=== PATIENT | female | born 1965 | race Caucasian/White ===

== ENCOUNTER → 2020-02-10 15:18 | Outpatient (CLI) | payer BC, SELFPAY ==
--- NOTE | ~2020-02-10 | MM_ITS ---
EXAMINATION: MM scrn luca implant BI w willa HISTORY: Screening mammogram, interval breast augmentation. TECHNIQUE: Craniocaudal and mediolateral oblique 3-D tomosynthesis images with implant displacement a nd synthetic 2-D images were generated. Craniocaudal and mediolateral oblique views of the breasts wi thout implant displacement were obtained using full field digital mammography. CAD analysis was submi tted and interpreted. COMPARISON: 08/21/2009, 01/17/2007 BREAST PARENCHYMAL COMPOSITION: The breasts are heterogeneously dense, which may obscure small masses . FINDINGS: RIGHT BREAST: Asymmetries are present in the far upper outer quadrant of the right breast on the medi olateral oblique view without implant displacement. LEFT BREAST: A 9 mm mass is present in the middle third of the inner quadrant of the breast 7.5 cm fr om the nipple. IMPRESSION: 1. Bilateral breast findings as described above. 2. Additional mammographic views and possible breast ultrasound are recommended. BI-RADS Category 0: Incomplete: Needs additional imaging evaluation. Reviewed, dictated and finalized at location A. IMPRESSION: 1. Bilateral breast findings as described above. 2. Additional mammographic views and possible breast ultrasound are recommended . BI-RADS Category 0: Incomplete: Needs additional imaging evaluation.
== END ==
PROVIDERS: PCP Internal Medicine; Visit Provider Internal Medicine
DX: Z12.31 Encounter for screening mammogram for malignant neoplasm of breast (principal); R92.8 Other abnormal and inconclusive findings on diagnostic imaging of breast
CPT/HCPCS: 77063; 77067

== ENCOUNTER 2022-11-04 02:04 | Day surgery (SDC) | payer BC, SELFPAY ==
[2022-10-22 14:15] VITALS: BMI 19.8
--- NOTE | 2022-11-01 17:25 | P.PNAN_ITS ---
Anes - Eval Pre Procedure Procedure: Operation Date: 11/04/22 09:00 Proposed Procedures p Screening Colonoscopy - Hardeep Mulligan MD Date/Time: 11/01/22 17:25 Pre Op Diagnosis: neoplasm screening Patient Data Age: 57 Gender: F Height: 1.63 m Weight: 52.5 kg Allergies Allergy/AdvReac Type Severity Reaction Status Date / Time No Known Allergies Verified 03/28/19 17:16 Home Medications Medication Instructions Recorded Confirmed Type lisinopril 10 mg tablet 10 mg PO DAILY 03/28/19 10/22/22 History sulfamethoxazole 800 1 tablet PO Q12H 10 days #20 tabs 03/28/19 10/22/22 Rx mg-trimethoprim 160 mg tablet sodium,potassium,mag sulfates 17.5 See Rx Instructions PO .COMPLEX 09/13/22 10/22/22 Rx gram-3.13 gram-1.6 gram oral soln #354 mL (Suprep Bowel Prep Kit) Patient hx anesthesia problems: none Family hx anesthesia problems: none Results Review: All pre-operative results and documents have been reviewed as part of the pre- operative evaluation. [facility] Past Medical History Medical History (Updated 11/01/22 @ 17:25 by Jayashree Mora CRNA) HTN (hypertension) Social History Social History Smoking status: Never smoker Alcohol intake: current Drinks per week: 7 Substance use: never Substance use type: does not use and heroin Living arrangements: with family Spiritual care concerns: No Exam Day of Procedure 11/01/22 17:25
[2022-11-04 07:46] VITALS: BP 137/85; PULSE 71; RESP 16; TEMP 36.6; O2SAT 100
[2022-11-04] MEDS: LACTATED RINGERS 1,000 ML 150 ML IV CONT (07:48)
--- NOTE | 2022-11-04 08:25 | P.HP_ITS ---
History of Present Illness History of Present Illness Consent: Risks, benefits, and alternatives have been discussed and questions answered. Patient agrees to proceed with procedure. Chief complaint: neoplasm screening, Family history of colon cance Narrative: Jacklyn Leyva is a 57 year old female Presents for screening colonoscopy. patient reports her weight appetite and bowel movements are normal. She denies abdominal pain. She has had no bleeding. Family history is significant her father had colon cancer. Grandfather had colon cancer. Two siblings have had colon polyps. Review of Systems Review of Systems: Review of systems noncontributory. [facility] Past Medical History Medical History (Updated 11/04/22 @ 08:27 by Hardeep Mulligan MD) HTN (hypertension) Social History Social History Smoking status: Never smoker Alcohol intake: current Drinks per week: 7 Substance use: never Substance use type: does not use and heroin Living arrangements: with family Spiritual care concerns: No Meds Home Medications and Allergies Home Medications Medication Instructions Recorded Confirmed Type lisinopril 10 mg tablet 10 mg PO DAILY 03/28/19 11/04/22 History Allergies Allergy/AdvReac Type Severity Reaction Status Date / Time No Known Allergies Verified 11/04/22 07:44 Vital Signs Vital Signs - 24 hr 11/04/22 07:46 Temperature 98 F Pulse Rate 71 Respiratory Rate 16 Blood Pressure 137/85 Pulse Oximetry 100 Oxygen Delivery Room Air Exam Narrative: Physical exam reveals patient to be alert. Vital signs stable. HEENT exam is unremarkable. Patient is anicteric. Lungs are clear to auscultation and percussion. Heart is without murmur or extra sounds. Abdomen bowel sounds are present soft nontender with no organomegaly. Digital external rectal exam normal. Assessment and Plan Assessment and plan (1) Family history of colon cancer in father: Code(s): Z80.0 - Family history of malignant neoplasm of digestive organs Status: Acute Assessment and Plan: Patient's family history is significant her father, grandfather, have had colon cancer. Two siblings have had colon polyps. Neoplasia screening is advised now and at 5 year intervals in the future.
--- NOTE | 2022-11-04 08:34 | P.PNAN_ITS ---
Anes - Eval Final PreProcedure Day of Procedure 11/04/22 08:34 Patient weight: normal Heart: regular rate and rhythm Lungs: clear to auscultation Airway: Mallampati scale class II Neurological: alert and oriented Last oral intake: >/= 8 hours ASA classification: II Emergent: no Anesthetic plan: proceed Anesthesia type and monitoring: general GIVS and standard monitoring Results Review: All pre-operative results and documents have been reviewed as part of the pre- operative evaluation. Informed Consent: The patient's anesthetic plan and its attendant risks and benefits were discussed with the patient/family/POA. Questions were solicited and answers provided to the satisfaction of the patient/family/POA.
[2022-11-04 09:32] VITALS: BP 100/68; PULSE 64; RESP 17; O2SAT 100
[2022-11-04 09:42] VITALS: BP 121/74; PULSE 55; RESP 17; O2SAT 100
[2022-11-04 09:52] VITALS: BP 128/67; PULSE 58; RESP 20; O2SAT 100
== END 2022-11-04 10:02 | disposition home or self-care (01) ==
PROVIDERS: PCP Internal Medicine; Visit Provider Internal Medicine Gastroenterology
PROC: 0DJD8ZZ Inspection of Lower Intestinal Tract, Via Natural or Artificial Opening Endoscopic (ICD-10-PCS; CPT 45378; principal; 2022-11-04 09:00)
DX: Z12.11 Encounter for screening for malignant neoplasm of colon (principal); Z80.0 Family history of malignant neoplasm of digestive organs; D12.8 Benign neoplasm of rectum; K64.8 Other hemorrhoids; I10 Essential (primary) hypertension
CPT/HCPCS: 45380; 88305; J2704; J7120

== ENCOUNTER 2023-07-02 16:12 | Outpatient (CLI) | payer BC, SELFPAY ==
--- NOTE | ~2023-07-02 | MM_ITS ---
EXAMINATION: MM scrn luca implant BI w willa HISTORY: Screening mammogram TECHNIQUE: Craniocaudal and mediolateral oblique 3-D tomosynthesis images with implant displacement a nd synthetic 2-D images were generated. Craniocaudal and mediolateral oblique views of the breasts wi thout implant displacement were obtained using full field digital mammography. CAD analysis was submi tted and interpreted. COMPARISON: Comparison to multiple prior studies sequentially, with oldest reviewed study dated 01/13. BREAST PARENCHYMAL COMPOSITION: Dense: The breasts are heterogeneously dense, which may obscure small masses FINDINGS: Decreased size of mass in the lower inner quadrant of the left breast compared with prior e xamination, presumably benign. There is no evidence of suspicious mass, calcification, or architectur al distortion to suggest malignancy in either breast. There has been no suspicious interval change. IMPRESSION: 1. No mammographic evidence of malignancy. 2. Recommend routine screening mammography in one year. BI-RADS Category 2: Benign finding(s). Reviewed, dictated and finalized at location A.
== END 2023-07-02 16:13 ==
PROVIDERS: PCP Obstetrics & Gynecology; Visit Provider Internal Medicine
DX: Z12.31 Encounter for screening mammogram for malignant neoplasm of breast (principal); Z98.82 Breast implant status
CPT/HCPCS: 77063; 77067